=== PATIENT | male | born 1970 | race Caucasian/White ===

== ENCOUNTER 2024-01-24 11:26 | Inpatient (IN) | payer MEDICAID ==
[~2024-01-24] VITALS: Ht 180.3 cm; Wt 66.2 kg
[2024-01-24] VITALS (7 sets, daily range): BP systolic 106–125; BP diastolic 62–75; PULSE 83–90; RESP 16–22; O2SAT 90–99
[2024-01-24 11:56] LABS: BASOPHILS # (AUTO) 0.1 X10'3 (0-0.2); BASOPHILS % (AUTO) 0.3 % (0-1); EOSINOPHILS % (AUTO) 0 % (0-6); HEMOGLOBIN 11.3 g/dl (14.0-17.9); LYMPHOCYTES # (AUTO) 0.6 X10'3 (1.1-4.8); LYMPHOCYTES % (AUTO) 2.3 % (21-51); MEAN PLATELET VOLUME 8.4 FL (7.4-10.4); MONOCYTES # (AUTO) 1.2 X10'3 (0-0.9); MONOCYTES % (AUTO) 4.2 % (2-12); NEUTROPHILS # (AUTO) 25.9 X10'3 (1.8-7.7); NEUTROPHILS % (AUTO) 93.2 % (42-75); PLATELET COUNT 283 X10'3 (140-440); RED BLOOD COUNT 4.85 X10'6 (4.70-6.10); RED CELL DISTRIBUTION WIDTH 19.5 % (11.5-14.5)
[2024-01-24 12:10] LABS: APTT 26 SECONDS (22-32); INR 1.7 INR; PROTHROMBIN TIME 17.6 SECONDS (9.0-12.0)
[2024-01-24 12:21] LABS: ALBUMIN 2.8 G/DL (3.4-5.0); ALBUMIN/GLOBULIN RATIO 0.5 (1.1-1.5); ALKALINE PHOSPHATASE 263 IU/L (46-116); ANION GAP 32 (8-16); ASPARTATE AMINO TRANSFERASE 1194 U/L (10-37); BILIRUBIN,DIRECT 2.3 MG/DL (0-0.3); BILIRUBIN,TOTAL 5.3 MG/DL (0.1-1.0); BLOOD UREA NITROGEN 46 MG/DL (7-18); BUN/CREATININE RATIO 19.2 (10.0-20.0); CHLORIDE 88 MMOL/L (99-107); ETHANOL < 10 MG/DL (<10); GLUCOSE 110 MG/DL (70-104); MAGNESIUM 2.8 MG/DL (1.5-2.4); POTASSIUM 5.8 MMOL/L (3.5-5.1); SODIUM 132 MMOL/L (135-145); eCRCL 30 ML/MIN; eGFR 28 ML/MIN
[2024-01-24 12:22] LABS: HEMATOCRIT 36.7 % (42.0-52.0); WHITE BLOOD COUNT 29.5 X10'3 (4.5-11.0)
[2024-01-24 12:23] LABS: MEAN CORPUSCULAR HEMOGLOBIN 23.8 PG (27.0-31.0); MEAN CORPUSCULAR HGB CONC 31.2 g/dL (33.0-36.5); MEAN CORPUSCULAR VOLUME 76.3 FL (78-98)
[2024-01-24 12:27] LABS: TOTAL CARBON DIOXIDE 12.5 MMOL/L (24-32); TOTAL CELLS COUNTED 100
[2024-01-24 12:28] LABS: ANISOCYTOSIS 2+; HYPOCHROMASIA 1+; LARGE PLATELETS FEW; PLATELET ESTIMATE NORMAL
[2024-01-24 12:29] LABS: ACANTHOCYTES FEW; ELLIPTOCYTES FEW; POLYCHROMASIA FEW; TEAR DROP CELLS FEW
[2024-01-24] MEDS: azithromycin/NS 500mg/250ml 250 ML IV ONE (12:33)
[2024-01-24] MEDS: CefTRIAXone 2gm/D5W 50ml BAG 50 ML IV ONE (12:34)
[2024-01-24 12:39] LABS: ALANINE AMINOTRANSFERASE 695 U/L (12-78)
[2024-01-24 12:49] LABS: PRO BRAIN NATRIURETIC PEPTIDE > 30000 PG/ML (0-125)
[2024-01-24] MEDS ORDERED: MIDAZolam 5mg/ml 2ml vial IV ONE (13:55)
[2024-01-24] MEDS: DOPamine 400mg/D5W 250ml 250 ML IV SCH ×2 (14:05→21:39)
[2024-01-24 14:06] LABS: ABG BASE EXCESS -8.1 mmol/L (-2.0-2.0); ABG HCO3 15.2 mmol/L (22.0-26.0); ABG OXYGEN SATURATION 94.1 % (94-97); ABG PCO2 (T) 24.1 mmHg (35.0-48.0); ABG PH (T) 7.413 (7.340-7.440); ABG PO2 (T) 72.7 mmHg (75.0-100.0); ALLEN'S TEST POSITIVE; FCOHb 0.4 % (0.0-3.9); FHHb 5.9 % (0.0-5.0); FMetHb 0.3 % (0.0-1.5); FO2Hb 93.4 % (94-97); MODE ROOM AIR; TOTAL HEMOGLOBIN 11.2 G/dl (14.0-17.9)
[2024-01-24] MEDS: albuterol 2.5 MG/3 ML nebule NEB ONE (14:10)
[2024-01-24] MEDS: normal saline 1000ml 1,000 ML IV ONE (14:10)
[2024-01-24 14:27] LABS: D-DIMER 2.92 MG/L FEU (0-0.50)
[2024-01-24] MEDS: DOBUTamine-DoBUTrex 500mg/D5W 250 ML IV PRN ×2 (14:43→22:14)
[2024-01-24 15:02] LABS: OSMOLALITY 299 MOSM/K (280-300)
[2024-01-24] MEDS ORDERED: morphine 4 MG/ML inj SYRINge IV PRN (15:05)
[2024-01-24] MEDS ORDERED: acetaminophen 325mg tablet PO PRN ×2 (15:05)
[2024-01-24] MEDS ORDERED: magnesium hydroxide 30ml (MOM) UD suspension PO PRN (15:05)
[2024-01-24] MEDS ORDERED: CALCIUM GLUC 1gm/50ml NACL,iso 50 ML IV PRN (15:10)
[2024-01-24] MEDS ORDERED: DOPamine 400mg/D5W 250ml 250 ML IV PRN (15:15)
[2024-01-24] MEDS ORDERED: hydrocortisone sod succ/PF 100mg/2ml inj. IV ONE (15:15)
[2024-01-24] MEDS: dextrose 50%-water 50ml dispensing syringe IV ONE (15:55)
[2024-01-24] MEDS: sodium bicarbonate (8.4%) 1 mEq/ml syringe IV ONE (15:57)
[2024-01-24] MEDS: insulin regular, human 10 units/0.1 ml syringe IV ONE (15:57)
[2024-01-24 16:05] LABS: RED BLOOD COUNT 4.7 X10'6 (4.70-6.10); RETICULOCYTE % (AUTO) 2.3 % (0.5-1.5)
[2024-01-24 16:24] LABS: CREATINE KINASE 118 U/L (39-308); THYROID STIMULATING HORMONE 5.88 ulU/ml (0.34-4.50)
[2024-01-24] MEDS: sodium polystyrene sulfonate 15gm/60ml oral suspension PO ONE (17:04)
[2024-01-24] MEDS ORDERED: ipratropium/albuterol 3ml nebule NEB SCH (19:00)
[2024-01-24 19:43] LABS: OCCULT BLOOD STOOL POSITIVE (Neg)
[2024-01-24] MEDS ORDERED: methylPREDNISolone sod succ 125mg/2ml vial IV SCH (20:00)
[2024-01-24] MEDS: heparin, porcine 5000 units/ml vial SQ SCH (20:48)
[2024-01-25] VITALS (26 sets, daily range): BP systolic 96–121; BP diastolic 53–72; PULSE 69–89; RESP 13–22; TEMP 97.5–97.9; O2SAT 85–100
[2024-01-25 06:37] LABS: ALBUMIN 2.3 G/DL (3.4-5.0); ALBUMIN/GLOBULIN RATIO 0.6 (1.1-1.5); ALKALINE PHOSPHATASE 209 IU/L (46-116); ANION GAP 7 (8-16); BILIRUBIN,TOTAL 2.7 MG/DL (0.1-1.0); BLOOD UREA NITROGEN 43 MG/DL (7-18); BUN/CREATININE RATIO 27.4 (10.0-20.0); CALCIUM 8.3 MG/DL (8.5-10.1); CHLORIDE 95 MMOL/L (99-107); CREATININE 1.57 MG/DL (0.60-1.10); GLUCOSE 86 MG/DL (70-104); MAGNESIUM 2.3 MG/DL (1.5-2.4); PHOSPHORUS 4.9 MG/DL (2.3-4.5); POTASSIUM 3.2 MMOL/L (3.5-5.1); SODIUM 136 MMOL/L (135-145); TOTAL CARBON DIOXIDE 34.5 MMOL/L (24-32); TOTAL PROTEIN 6.4 G/DL (6.4-8.2); eCRCL 50 ML/MIN; eGFR 46 ML/MIN
[2024-01-25 07:02] LABS: ALANINE AMINOTRANSFERASE 1973 U/L (12-78); ASPARTATE AMINO TRANSFERASE 2936 U/L (10-37)
[2024-01-25] MEDS: pantoprazole 40mg Tablet.DR PO SCH ×2 (07:30→08:58)
[2024-01-25 09:19] LABS: C DIFF ANTIGEN POSITIVE (NEGATIVE); C DIFF SPECIMEN=DIARRHEA? ACCEPTABLE; C DIFFICILE TOXINS A&B POSITIVE (Neg)
[2024-01-25 11:05] LABS: BASOPHILS # (AUTO) 0.1 X10'3 (0-0.2); BASOPHILS % (AUTO) 0.4 % (0-1); EOSINOPHILS % (AUTO) 0 % (0-6); HEMATOCRIT 28.9 % (42.0-52.0); LYMPHOCYTES # (AUTO) 0.6 X10'3 (1.1-4.8); MEAN CORPUSCULAR HEMOGLOBIN 23.7 PG (27.0-31.0); MEAN CORPUSCULAR VOLUME 76.4 FL (78-98); MEAN PLATELET VOLUME 8.7 FL (7.4-10.4); MONOCYTES # (AUTO) 0.3 X10'3 (0-0.9); MONOCYTES % (AUTO) 1.5 % (2-12); NEUTROPHILS # (AUTO) 17.5 X10'3 (1.8-7.7); NEUTROPHILS % (AUTO) 95.1 % (42-75); PLATELET COUNT 203 X10'3 (140-440); RED BLOOD COUNT 3.78 X10'6 (4.70-6.10); RED CELL DISTRIBUTION WIDTH 17.9 % (11.5-14.5); WHITE BLOOD COUNT 18.4 X10'3 (4.5-11.0)
[2024-01-25] MEDS ORDERED: MIDO2.5T14 PO (11:25)
[2024-01-25] MEDS ORDERED: AMI200T PO (11:25)
[2024-01-25] MEDS ORDERED: BUME2TAB7 PO (11:25)
[2024-01-25] MEDS ORDERED: ACET-2119 PO (11:25)
[2024-01-25] MEDS ORDERED: ENOX40SY7 SUBCUT (11:25)
[2024-01-25] MEDS ORDERED: potassium Cl 40MEQ/270ML bag 270 ML IV PRN (17:15)
[2024-01-25] MEDS ORDERED: potassium Cl 20 mEq SR tablet PO PRN (17:15)
[2024-01-25] MEDS ORDERED: potassium Cl 40MEQ/1/2NS 520ml 520 ML IV PRN (17:15)
[2024-01-25] MEDS: DOBUTamine-DoBUTrex 500mg/D5W 250 ML IV SCH (20:00)
[2024-01-25] MEDS: DOBUTamine-DoBUTrex 500mg/D5W 250 ML IV PRN (21:47)
[2024-01-26] VITALS (10 sets, daily range): BP systolic 101–117; BP diastolic 59–83; PULSE 72–97; RESP 13–22; TEMP 97.3–99; O2SAT 93–100
[2024-01-26 03:49] LABS: BASOPHILS # (AUTO) 0.1 X10'3 (0-0.2); BASOPHILS % (AUTO) 0.3 % (0-1); EOSINOPHILS % (AUTO) 0.1 % (0-6); HEMATOCRIT 27.6 % (42.0-52.0); HEMOGLOBIN 8.8 g/dl (14.0-17.9); LYMPHOCYTES # (AUTO) 0.6 X10'3 (1.1-4.8); LYMPHOCYTES % (AUTO) 3.6 % (21-51); MEAN CORPUSCULAR HGB CONC 31.9 g/dL (33.0-36.5); MEAN CORPUSCULAR VOLUME 75.3 FL (78-98); MEAN PLATELET VOLUME 7.3 FL (7.4-10.4); MONOCYTES # (AUTO) 0.4 X10'3 (0-0.9); MONOCYTES % (AUTO) 2.6 % (2-12); NEUTROPHILS % (AUTO) 93.4 % (42-75); PLATELET COUNT 193 X10'3 (140-440); RED BLOOD COUNT 3.67 X10'6 (4.70-6.10); RED CELL DISTRIBUTION WIDTH 18.5 % (11.5-14.5); WHITE BLOOD COUNT 16.1 X10'3 (4.5-11.0)
[2024-01-26 04:11] LABS: ALBUMIN 2.1 G/DL (3.4-5.0); ALBUMIN/GLOBULIN RATIO 0.5 (1.1-1.5); ALKALINE PHOSPHATASE 194 IU/L (46-116); ANION GAP 4 (8-16); BILIRUBIN,TOTAL 2.3 MG/DL (0.1-1.0); BLOOD UREA NITROGEN 28 MG/DL (7-18); BUN/CREATININE RATIO 25.5 (10.0-20.0); CALCIUM 7.8 MG/DL (8.5-10.1); CHLORIDE 93 MMOL/L (99-107); GLUCOSE 82 MG/DL (70-104); POTASSIUM 3.4 MMOL/L (3.5-5.1); SODIUM 129 MMOL/L (135-145); TOTAL CARBON DIOXIDE 32.4 MMOL/L (24-32); TOTAL PROTEIN 6.1 G/DL (6.4-8.2); eCRCL 71 ML/MIN; eGFR 69 ML/MIN
[2024-01-26 04:12] LABS: ALANINE AMINOTRANSFERASE 1469 U/L (12-78); ASPARTATE AMINO TRANSFERASE 1408 U/L (10-37)
[2024-01-26] MEDS: lactose-reduced food (Ensure Enlive) - 237ml bottle PO SCH (17:30)
[2024-01-26] MEDS: potassium Cl 20 mEq SR tablet PO PRN (21:05)
[2024-01-27] VITALS (17 sets, daily range): BP systolic 98–126; BP diastolic 67–91; PULSE 81–101; RESP 12–32; TEMP 97.3–97.9; O2SAT 92–98
[2024-01-27] MEDS: ondansetron/PF 4mg/2ml inj IV PRN (00:23)
[2024-01-27 06:42] LABS: BASOPHILS % (AUTO) 0.3 % (0-1); EOSINOPHILS % (AUTO) 0.1 % (0-6); HEMATOCRIT 30.1 % (42.0-52.0); HEMOGLOBIN 9.4 g/dl (14.0-17.9); LYMPHOCYTES % (AUTO) 6.4 % (21-51); MEAN CORPUSCULAR HGB CONC 31.4 g/dL (33.0-36.5); MEAN CORPUSCULAR VOLUME 76.4 FL (78-98); MEAN PLATELET VOLUME 7.7 FL (7.4-10.4); MONOCYTES # (AUTO) 0.5 X10'3 (0-0.9); MONOCYTES % (AUTO) 3.2 % (2-12); NEUTROPHILS # (AUTO) 13.8 X10'3 (1.8-7.7); PLATELET COUNT 223 X10'3 (140-440); RED BLOOD COUNT 3.93 X10'6 (4.70-6.10); WHITE BLOOD COUNT 15.3 X10'3 (4.5-11.0)
[2024-01-27 07:08] LABS: ALBUMIN 2.3 G/DL (3.4-5.0); ALBUMIN/GLOBULIN RATIO 0.5 (1.1-1.5); ALKALINE PHOSPHATASE 237 IU/L (46-116); ANION GAP 8 (8-16); ASPARTATE AMINO TRANSFERASE 705 U/L (10-37); BILIRUBIN,TOTAL 2.4 MG/DL (0.1-1.0); BLOOD UREA NITROGEN 27 MG/DL (7-18); BUN/CREATININE RATIO 25.7 (10.0-20.0); CALCIUM 7.9 MG/DL (8.5-10.1); CHLORIDE 91 MMOL/L (99-107); CREATININE 1.05 MG/DL (0.60-1.10); GLUCOSE 126 MG/DL (70-104); POTASSIUM 3.5 MMOL/L (3.5-5.1); SODIUM 125 MMOL/L (135-145); TOTAL CARBON DIOXIDE 25.6 MMOL/L (24-32); eCRCL 74 ML/MIN; eGFR 73 ML/MIN
[2024-01-27 07:12] LABS: ALANINE AMINOTRANSFERASE 1240 U/L (12-78)
[2024-01-27 07:36] LABS: ANISOCYTOSIS 2+; MICROCYTOSIS 1+; PLATELET ESTIMATE NORMAL; POIKILOCYTOSIS FEW
[2024-01-27] MEDS: ipratropium/albuterol 3ml nebule NEB PRN (16:56)
[2024-01-28] VITALS (21 sets, daily range): BP systolic 98–138; BP diastolic 67–91; PULSE 47–96; RESP 11–23; TEMP 97.7–98.6; O2SAT 94–99
[2024-01-28] MEDS: morphine 2 MG/ML inj. syringe IV PRN (05:25)
[2024-01-28 07:36] LABS: BASOPHILS % (AUTO) 0.3 % (0-1); EOSINOPHILS % (AUTO) 0.1 % (0-6); HEMATOCRIT 28.6 % (42.0-52.0); HEMOGLOBIN 9.2 g/dl (14.0-17.9); LYMPHOCYTES # (AUTO) 0.7 X10'3 (1.1-4.8); LYMPHOCYTES % (AUTO) 6.9 % (21-51); MEAN CORPUSCULAR HEMOGLOBIN 24.4 PG (27.0-31.0); MEAN CORPUSCULAR HGB CONC 32.2 g/dL (33.0-36.5); MEAN CORPUSCULAR VOLUME 75.7 FL (78-98); MEAN PLATELET VOLUME 7.5 FL (7.4-10.4); MONOCYTES # (AUTO) 0.5 X10'3 (0-0.9); NEUTROPHILS # (AUTO) 9.2 X10'3 (1.8-7.7); NEUTROPHILS % (AUTO) 87.7 % (42-75); PLATELET COUNT 179 X10'3 (140-440); RED BLOOD COUNT 3.78 X10'6 (4.70-6.10); RED CELL DISTRIBUTION WIDTH 18.7 % (11.5-14.5); WHITE BLOOD COUNT 10.4 X10'3 (4.5-11.0)
[2024-01-28 07:49] LABS: ALANINE AMINOTRANSFERASE 851 U/L (12-78); ALBUMIN 2.2 G/DL (3.4-5.0); ALBUMIN/GLOBULIN RATIO 0.5 (1.1-1.5); ALKALINE PHOSPHATASE 217 IU/L (46-116); ANION GAP 6 (8-16); ASPARTATE AMINO TRANSFERASE 338 U/L (10-37); BILIRUBIN,TOTAL 2.5 MG/DL (0.1-1.0); BLOOD UREA NITROGEN 24 MG/DL (7-18); BUN/CREATININE RATIO 24.5 (10.0-20.0); CALCIUM 8.1 MG/DL (8.5-10.1); CHLORIDE 93 MMOL/L (99-107); CREATININE 0.98 MG/DL (0.60-1.10); GLUCOSE 126 MG/DL (70-104); MAGNESIUM 2.1 MG/DL (1.5-2.4); PHOSPHORUS 2.4 MG/DL (2.3-4.5); POTASSIUM 4.4 MMOL/L (3.5-5.1); SODIUM 125 MMOL/L (135-145); TOTAL CARBON DIOXIDE 26.5 MMOL/L (24-32); TOTAL PROTEIN 6.6 G/DL (6.4-8.2); eCRCL 80 ML/MIN; eGFR 79 ML/MIN
[2024-01-28] MEDS: oxyCODONE/APAP 10/325mg tablet PO PRN (13:38)
[2024-01-28] MEDS: lactose-reduced food (Ensure Enlive) - 237ml bottle PO SCH (18:02)
[2024-01-28] MEDS: DOPamine 400mg/D5W 250ml 250 ML IV SCH (22:54)
[2024-01-29] VITALS (15 sets, daily range): BP systolic 109–134; BP diastolic 63–81; PULSE 48–82; RESP 12–24; TEMP 96.9–98; O2SAT 95–99
[2024-01-29] MEDS ORDERED: DOPamine 400mg/D5W 250ml 250 ML IV SCH (04:00)
[2024-01-29 06:07] LABS: ALANINE AMINOTRANSFERASE 930 U/L (12-78); ALBUMIN 2.7 G/DL (3.4-5.0); ALKALINE PHOSPHATASE 268 IU/L (46-116); ASPARTATE AMINO TRANSFERASE 492 U/L (10-37); BILIRUBIN,TOTAL 4.6 MG/DL (0.1-1.0); BLOOD UREA NITROGEN 43 MG/DL (7-18); BUN/CREATININE RATIO 24.7 (10.0-20.0); CALCIUM 9.3 MG/DL (8.5-10.1); CHLORIDE 86 MMOL/L (99-107); CREATININE 1.74 MG/DL (0.60-1.10); GLUCOSE 68 MG/DL (70-104); MAGNESIUM 2.9 MG/DL (1.5-2.4); eCRCL 45 ML/MIN; eGFR 41 ML/MIN
[2024-01-29 06:11] LABS: TOTAL CARBON DIOXIDE 14.2 MMOL/L (24-32)
[2024-01-29 06:34] LABS: ALBUMIN/GLOBULIN RATIO 0.5 (1.1-1.5); ANION GAP 22 (8-16); PHOSPHORUS 5.3 MG/DL (2.3-4.5); POTASSIUM 5.9 MMOL/L (3.5-5.1); SODIUM 122 MMOL/L (135-145); TOTAL PROTEIN 8.2 G/DL (6.4-8.2)
[2024-01-29] MEDS: sodium bicarbonate (8.4%) inj. 50 MEQ in sodium chloride 0.45% 1,000 ML IV SCH (08:58)
[2024-01-29 11:01] LABS: BASOPHILS % (AUTO) 0.1 % (0-1); EOSINOPHILS % (AUTO) 0 % (0-6); LYMPHOCYTES # (AUTO) 0.8 X10'3 (1.1-4.8); LYMPHOCYTES % (AUTO) 3.4 % (21-51); MEAN PLATELET VOLUME 8.5 FL (7.4-10.4); MONOCYTES # (AUTO) 2.3 X10'3 (0-0.9); MONOCYTES % (AUTO) 9.6 % (2-12); NEUTROPHILS # (AUTO) 21.2 X10'3 (1.8-7.7); NEUTROPHILS % (AUTO) 86.9 % (42-75); PLATELET COUNT 205 X10'3 (140-440); WHITE BLOOD COUNT 24.4 X10'3 (4.5-11.0)
[2024-01-29 11:13] LABS: HEMATOCRIT 35.7 % (42.0-52.0); HEMOGLOBIN 11.8 g/dl (14.0-17.9); MEAN CORPUSCULAR HEMOGLOBIN 25.6 PG (27.0-31.0); MEAN CORPUSCULAR VOLUME 77.5 FL (78-98); RED CELL DISTRIBUTION WIDTH 18.6 % (11.5-14.5)
[2024-01-29 11:33] LABS: ANISOCYTOSIS 2+; MICROCYTOSIS 1+; PLATELET ESTIMATE NORMAL; POLYCHROMASIA FEW; TARGET CELLS FEW; TOTAL CELLS COUNTED 100
[2024-01-29 11:34] LABS: ACANTHOCYTES FEW; BURR CELLS FEW; TEAR DROP CELLS FEW
[2024-01-29 18:50] LABS: ALBUMIN 2.6 G/DL (3.4-5.0); ALBUMIN/GLOBULIN RATIO 0.5 (1.1-1.5); ALKALINE PHOSPHATASE 247 IU/L (46-116); ANION GAP 28 (8-16); BILIRUBIN,TOTAL 4.9 MG/DL (0.1-1.0); BLOOD UREA NITROGEN 50 MG/DL (7-18); CALCIUM 9.4 MG/DL (8.5-10.1); CHLORIDE 84 MMOL/L (99-107); CREATININE 2.08 MG/DL (0.60-1.10); GLUCOSE 53 MG/DL (70-104); SODIUM 123 MMOL/L (135-145); TOTAL PROTEIN 7.6 G/DL (6.4-8.2); eCRCL 38 ML/MIN; eGFR 33 ML/MIN
[2024-01-29 18:53] LABS: ALANINE AMINOTRANSFERASE 1324 U/L (12-78); ASPARTATE AMINO TRANSFERASE 1403 U/L (10-37)
[2024-01-29 18:59] LABS: POTASSIUM 6.1 MMOL/L (3.5-5.1); TOTAL CARBON DIOXIDE 11.3 MMOL/L (24-32)
[2024-01-29] MEDS: sodium bicarbonate (8.4%) 1 mEq/ml syringe IV ONE ×2 (19:25→21:09)
[2024-01-29] MEDS ORDERED: CALCIUM GLUC 1gm/50ml NACL,iso 50 ML IV PRN (19:25)
[2024-01-29] MEDS: levoFLOXACIN 500mg tablet PO ONE (19:45)
[2024-01-29] MEDS: DOBUTamine-DoBUTrex 500mg/D5W 250 ML IV SCH (19:48)
[2024-01-29] MEDS: dextrose 50%-water 50ml dispensing syringe IV ONE (20:17)
[2024-01-29] MEDS: insulin regular, human 10 units/0.1 ml syringe IV ONE (20:27)
[2024-01-29] MEDS: CALCIUM GLUC 1gm/50ml NACL,iso 50 ML IV ONE (21:10)
[2024-01-30] VITALS (12 sets, daily range): BP systolic 95–116; BP diastolic 59–74; PULSE 69–79; RESP 15–20; TEMP 97.8–97.9; O2SAT 92–98
[2024-01-30 07:06] LABS: BASOPHILS % (AUTO) 0.3 % (0-1); EOSINOPHILS % (AUTO) 0 % (0-6); HEMATOCRIT 28.5 % (42.0-52.0); LYMPHOCYTES # (AUTO) 0.7 X10'3 (1.1-4.8); LYMPHOCYTES % (AUTO) 4.6 % (21-51); MEAN CORPUSCULAR HGB CONC 31.6 g/dL (33.0-36.5); MEAN CORPUSCULAR VOLUME 76.1 FL (78-98); MEAN PLATELET VOLUME 8.2 FL (7.4-10.4); MONOCYTES # (AUTO) 0.7 X10'3 (0-0.9); MONOCYTES % (AUTO) 4.8 % (2-12); NEUTROPHILS # (AUTO) 13.3 X10'3 (1.8-7.7); NEUTROPHILS % (AUTO) 90.3 % (42-75); PLATELET COUNT 179 X10'3 (140-440); RED BLOOD COUNT 3.75 X10'6 (4.70-6.10); RED CELL DISTRIBUTION WIDTH 19.4 % (11.5-14.5); WHITE BLOOD COUNT 14.7 X10'3 (4.5-11.0)
[2024-01-30 07:30] LABS: ALANINE AMINOTRANSFERASE 1104 U/L (12-78); ALBUMIN 2.1 G/DL (3.4-5.0); ALBUMIN/GLOBULIN RATIO 0.5 (1.1-1.5); ALKALINE PHOSPHATASE 203 IU/L (46-116); ANION GAP 7 (8-16); ASPARTATE AMINO TRANSFERASE 869 U/L (10-37); BILIRUBIN,TOTAL 4.1 MG/DL (0.1-1.0); BLOOD UREA NITROGEN 47 MG/DL (7-18); BUN/CREATININE RATIO 31.3 (10.0-20.0); CALCIUM 8.1 MG/DL (8.5-10.1); CHLORIDE 87 MMOL/L (99-107); GLUCOSE 95 MG/DL (70-104); MAGNESIUM 2.1 MG/DL (1.5-2.4); PHOSPHORUS 3.6 MG/DL (2.3-4.5); PRO BRAIN NATRIURETIC PEPTIDE 23118 PG/ML (0-125); SODIUM 121 MMOL/L (135-145); TOTAL CARBON DIOXIDE 27.5 MMOL/L (24-32); TOTAL PROTEIN 6.2 G/DL (6.4-8.2); eCRCL 52 ML/MIN; eGFR 49 ML/MIN
[2024-01-31] VITALS (15 sets, daily range): BP systolic 95–117; BP diastolic 66–83; PULSE 69–87; RESP 10–73; TEMP 97.6–98.1; O2SAT 92–97
[2024-01-31 07:59] LABS: ALANINE AMINOTRANSFERASE 879 U/L (12-78); ALBUMIN 2.1 G/DL (3.4-5.0); ALBUMIN/GLOBULIN RATIO 0.5 (1.1-1.5); ALKALINE PHOSPHATASE 227 IU/L (46-116); ANION GAP 3 (8-16); ASPARTATE AMINO TRANSFERASE 498 U/L (10-37); BILIRUBIN,TOTAL 3.7 MG/DL (0.1-1.0); BLOOD UREA NITROGEN 35 MG/DL (7-18); CHLORIDE 89 MMOL/L (99-107); CREATININE 1.06 MG/DL (0.60-1.10); GLUCOSE 99 MG/DL (70-104); MAGNESIUM 1.9 MG/DL (1.5-2.4); PHOSPHORUS 2.6 MG/DL (2.3-4.5); POTASSIUM 4.4 MMOL/L (3.5-5.1); SODIUM 122 MMOL/L (135-145); TOTAL CARBON DIOXIDE 30.2 MMOL/L (24-32); TOTAL PROTEIN 6.4 G/DL (6.4-8.2); eCRCL 74 ML/MIN; eGFR 73 ML/MIN
[2024-01-31 11:19] LABS: BASOPHILS % (AUTO) 0.1 % (0-1); EOSINOPHILS % (AUTO) 0.1 % (0-6); HEMATOCRIT 28.6 % (42.0-52.0); LYMPHOCYTES # (AUTO) 0.6 X10'3 (1.1-4.8); LYMPHOCYTES % (AUTO) 6.9 % (21-51); MEAN CORPUSCULAR HEMOGLOBIN 23.9 PG (27.0-31.0); MEAN CORPUSCULAR HGB CONC 31.6 g/dL (33.0-36.5); MEAN CORPUSCULAR VOLUME 75.6 FL (78-98); MEAN PLATELET VOLUME 7.6 FL (7.4-10.4); MONOCYTES # (AUTO) 0.5 X10'3 (0-0.9); MONOCYTES % (AUTO) 6.2 % (2-12); NEUTROPHILS # (AUTO) 7.3 X10'3 (1.8-7.7); NEUTROPHILS % (AUTO) 86.7 % (42-75); PLATELET COUNT 185 X10'3 (140-440); RED BLOOD COUNT 3.78 X10'6 (4.70-6.10); WHITE BLOOD COUNT 8.4 X10'3 (4.5-11.0)
[2024-01-31 11:35] LABS: ANISOCYTOSIS 2+; MICROCYTOSIS 1+; NUCLEATED RED BLOOD CELLS 1 /100WBC (0-0); PLATELET ESTIMATE NORMAL; TOTAL CELLS COUNTED 100
[2024-01-31 11:36] LABS: ACANTHOCYTES FEW; BURR CELLS FEW; ELLIPTOCYTES FEW; POLYCHROMASIA FEW; TEAR DROP CELLS FEW
[2024-01-31] MEDS: sodium chloride 1gm tablet PO SCH (13:02)
== END 2024-01-31 17:15 | DRG 720 ==
LOC: ER 11:27 → ED HOLD 15:06 → CICU 2S 16:53 → PCU 3S 01-25 19:39
PROVIDERS: ADMIT Internal Medicine Critical Care Medicine; ATTEND Internal Medicine Critical Care Medicine
PROC: CB121ZZ Planar Nuclear Medicine Imaging of Lungs and Bronchi using Technetium 99m (Tc-99m) (ICD-10-PCS; principal; 2024-01-25)
DX: A41.89 Other specified sepsis (principal); J96.01 Acute respiratory failure with hypoxia; R65.21 Severe sepsis with septic shock; I50.23 Acute on chronic systolic (congestive) heart failure; J15.69 Pneumonia due to other Gram-negative bacteria; D68.9 Coagulation defect, unspecified; A04.72 Enterocolitis due to Clostridium difficile, not specified as recurrent; E87.1 Hypo-osmolality and hyponatremia; I27.20 Pulmonary hypertension, unspecified; J15.9 Unspecified bacterial pneumonia; E88.09 Other disorders of plasma-protein metabolism, not elsewhere classified; D64.9 Anemia, unspecified; N17.9 Acute kidney failure, unspecified; I42.0 Dilated cardiomyopathy; J44.1 Chronic obstructive pulmonary disease with (acute) exacerbation; F15.10 Other stimulant abuse, uncomplicated; I25.10 Atherosclerotic heart disease of native coronary artery without angina pectoris; N18.9 Chronic kidney disease, unspecified; L30.9 Dermatitis, unspecified; E87.5 Hyperkalemia; E16.2 Hypoglycemia, unspecified; J44.0 Chronic obstructive pulmonary disease with (acute) lower respiratory infection; Z88.1 Allergy status to other antibiotic agents; Z88.5 Allergy status to narcotic agent; Z87.891 Personal history of nicotine dependence; Z86.73 Personal history of transient ischemic attack (TIA), and cerebral infarction without residual deficits
CPT/HCPCS: 36415; 36600; 71045; 78582; 80048; 80053; 80069; 80076; 80320; 82272; 82550; 82803; 82948; 83010; 83605; 83735; 83880; 83930; 84100; 84145; 84443; 84484; 85007; 85008; 85018; 85025; 85045; 85379; 85610; 85730; 87040; 87081; 87324; 87449; 93005; 93306; 94640; 94760; 96365; 96367; 97161; 97530; 99291; A4620; A4649; A6196; A6209; A6212; A6222; A6223; A6250; A6258; A6402; A6446; A6449; A9539; A9540; C1758; G0378; J0456; J0610; J0696; J1250; J1265; J1644; J1815; J2270; J2405; J3490; J7030